=== PATIENT | male | born 1970 | race Caucasian/White ===

== ENCOUNTER 2022-09-23 01:09 | Day surgery (SDC) | payer OTHER, SELFPAY ==
[2022-09-10 14:26] VITALS: BMI 27.8
[2022-09-23 07:52] VITALS: BP 134/95; PULSE 87; RESP 20; TEMP 36.3; O2SAT 98
[2022-09-23] MEDS: LACTATED RINGERS 1,000 ML 150 ML IV CONT (07:59)
--- NOTE | 2022-09-23 09:20 | P.PNAN_ITS ---
Anes - Initial Pre Proc Eval Procedure: Operation Date: 09/23/22 09:15 Proposed Procedures p Screening Colonoscopy - Jono Us MD Date/Time: 09/23/22 09:20 Surgeon: Jono Us MD Pre Op Diagnosis: neoplasm screening Patient Data Age: 51 Gender: M Height: 1.78 m Weight: 87.2 kg Last Vital Signs Temp 97.3 F L 09/23/22 07:52 Pulse 87 09/23/22 07:52 Resp 20 09/23/22 07:52 BP 134/95 H 09/23/22 07:52 Pulse Ox 98 09/23/22 07:52 O2 Del Method Room Air 09/23/22 07:52 Allergies Allergy/AdvReac Type Severity Reaction Status Date / Time amoxicillin Allergy Severe Hives Verified 09/23/22 07:51 clavulanic acid Allergy Severe Hives Verified 09/23/22 07:51 [From Augmentin] Home Medications Medication Instructions Recorded Confirmed Type No Home Medications 07/31/21 09/10/22 History Patient hx anesthesia problems: none Family hx anesthesia problems: none Results Review: All pre-operative results and documents have been reviewed as part of the pre- operative evaluation. [facility] Past Medical History Medical History GERD (gastroesophageal reflux disease) Hx of testicular cancer Family History Family History Father T-cell lymphoma Diabetes mellitus Grandparent Lung cancer Mother Rheumatoid arthritis CHF (congestive heart failure) Social History Social History (Updated 08/13/22 @ 09:14 by Cherie Hinkle CMA) Smoking status: Never smoker Alcohol intake: current Drinks per week: 1 Alcohol use details: seldom Substance use: never Substance use type: does not use Lack of Transportation: No Lack of Food: Never True Current Housing: I Have Housing Concerned About Future Housing: No Difficulty Paying Gas/Electric Bills: No Difficulty Paying for Meds: No Currently Unemployed: No Education: High School Diploma/GED Difficulty w/ Childcare or Family Care: No Living arrangements: with family Spiritual care concerns: No Anes - Eval Final PreProcedure Day of Procedure 09/23/22 09:20 Patient weight: normal Heart: regular rate and rhythm Lungs: clear to auscultation Airway: Mallampati scale class II Neurological: alert and oriented Last oral intake: >/= 8 hours ASA classification: II Emergent: no Anesthetic plan: proceed Anesthesia type and monitoring: general GIVS and standard monitoring Results Review: All pre-operative results and documents have been reviewed as part of the pre- operative evaluation. Informed Consent: The patient's anesthetic plan and its attendant risks and benefits were discussed with the patient/family/POA. Questions were solicited and answers provided to the satisfaction of the patient/family/POA.
--- NOTE | 2022-09-23 09:42 | PM.HPGS ---
History of Present Illness History of Present Illness Consent: Risks, benefits, and alternatives have been discussed and questions answered. Patient agrees to proceed with procedure. Chief complaint: neoplasm screening Narrative: Marc Christopher is a 51 year old male here for first screening colonoscopy Review of Systems Constitutional: Constitutional: Denies headache(s) and Denies weakness Eyes: Eyes: Denies blurry vision ENT: Reports Normal hearing present, Denies headache(s) and Denies neck pain Cardiovascular: Cardiovascular: Denies chest pain and Denies dyspnea Respiratory: Respiratory: Denies dyspnea Gastrointestinal: Gastrointestinal: Reports no additional gastrointestinal complaints Genitourinary: Genitourinary: Denies dysuria Musculoskeletal: Musculoskeletal: Denies neck pain Integumentary/Breasts: Skin/Breast: Denies dry skin Neurologic: Reports Normal hearing present, Denies headache(s) and Denies weakness Psychiatric: Psychiatric: Denies anxiety Endocrine: Endocrine: Denies change in body appearance Hematologic/Lymphatic: Hematologic/Lymphatic: Denies easy bleeding Allergic/Immunologic: Allergic/Immunologic: Denies urticaria [facility] Past Medical History Medical History (Updated 09/23/22 @ 09:43 by Jono Us MD) Colon cancer screening GERD (gastroesophageal reflux disease) Hx of testicular cancer Family History Family History Father T-cell lymphoma Diabetes mellitus Grandparent Lung cancer Mother Rheumatoid arthritis CHF (congestive heart failure) Social History Social History (Updated 08/13/22 @ 09:14 by Cherie Hinkle CMA) Smoking status: Never smoker Alcohol intake: current Drinks per week: 1 Alcohol use details: seldom Substance use: never Substance use type: does not use Lack of Transportation: No Lack of Food: Never True Current Housing: I Have Housing Concerned About Future Housing: No Difficulty Paying Gas/Electric Bills: No Difficulty Paying for Meds: No Currently Unemployed: No Education: High School Diploma/GED Difficulty w/ Childcare or Family Care: No Living arrangements: with family Spiritual care concerns: No Meds Home Medications and Allergies Home Medications Medication Instructions Recorded Confirmed Type No Home Medications 07/31/21 09/10/22 History Allergies Allergy/AdvReac Type Severity Reaction Status Date / Time amoxicillin Allergy Severe Hives Verified 09/23/22 07:51 clavulanic acid Allergy Severe Hives Verified 09/23/22 07:51 [From Augmentin] Vital Signs Vital Signs - 24 hr 09/23/22 07:52 Temperature 97.3 F L Pulse Rate 87 Respiratory Rate 20 Blood Pressure 134/95 H Pulse Oximetry 98 Oxygen Delivery Room Air Exam Const: General: comfortable and no acute distress HENMT: Face/Nose/Sinus: Normal nares present Eyes: General: appearance normal, both eyes and all related structures Neck: Neck: no JVD Resp: Auscultation: clear to auscultation bilaterally Cardio: Rate: regular rate Rhythm: regular rhythm GI: Inspection: non-distended GI Palp: Yes Soft to palpation Skin: General skin exam: normal color Neuro: General: gait normal Speech: normal speech Extrem: General: normal to inspection Psych: Mental Status: mental status grossly normal Assessment and Plan Assessment and plan (1) Colon cancer screening: Code(s): Z12.11 - Encounter for screening for malignant neoplasm of colon Status: Acute Assessment and Plan: colonoscopy
[2022-09-23 10:03] VITALS: BP 117/86; PULSE 82; RESP 17; O2SAT 96
[2022-09-23 10:13] VITALS: BP 124/79; PULSE 75; RESP 15; O2SAT 99
[2022-09-23 10:23] VITALS: BP 128/84; PULSE 64; RESP 16; O2SAT 100
== END 2022-09-23 10:33 | disposition home or self-care (01) ==
PROVIDERS: PCP Family Medicine; Visit Provider Internal Medicine Gastroenterology
PROC: 0DJD8ZZ Inspection of Lower Intestinal Tract, Via Natural or Artificial Opening Endoscopic (ICD-10-PCS; CPT 45378; principal; 2022-09-23 09:15)
DX: Z12.11 Encounter for screening for malignant neoplasm of colon (principal); K51.40 Inflammatory polyps of colon without complications; K63.5 Polyp of colon; Z85.47 Personal history of malignant neoplasm of testis
CPT/HCPCS: 45380; 45385; 88305; J2704; J7120